=== PATIENT | female | born 1995 | race Caucasian/White ===

== ENCOUNTER → 2017-05-15 | Outpatient (CLI) | payer OTHER ==
[2017-05-15 13:20] LABS: BASOPHIL % 0.5 % (0-2); PLATELET COUNT 212 x10^3mcL (130-400); RED CELL DISTRIBUTION WIDTH 13.8 % (11.5-14.5)
[2017-05-15 13:44] LABS: ALKALINE PHOSPHATASE 47 U/L (46-116); ALT/SGPT 23 U/L (14-59); AMYLASE 78 U/L (25-115); AST/SGOT 15 U/L (15-37); CARBON DIOXIDE 25.2 mmol/L (21-32); CHLORIDE SERUM 105 mmol/L (98-107); CREATININE SERUM 0.7 mg/dL (0.6-1.0); GFR1 > 60 mL/min; GLUCOSE SERUM 95 mg/dL (74-106); LIPASE 134 IU/L (73-393); POTASSIUM SERUM 4.3 mmol/L (3.5-5.1); SODIUM SERUM 139 mmol/L (136-145); TOTAL PROTEIN, SERUM 7.6 g/dL (6.4-8.2)
== END | disposition home or self-care (01) ==
LOC: LB 12:11
PROVIDERS: Family Medicine
PROC: BW40ZZZ Ultrasonography of Abdomen (ICD-10-PCS; principal; 2017-05-15)
DX: R10.9 Unspecified abdominal pain (principal)

== ENCOUNTER 2018-08-04 04:07 | Emergency (ER) | payer OTHER ==
[~2018-08-04] VITALS: Ht 165.1 cm; Wt 78.0 kg
[2018-08-04 04:49] VITALS: BP 137/94
== END 2018-08-04 04:49 | disposition home or self-care (01) ==
LOC: ED 04:07
DX: N39.0 Urinary tract infection, site not specified (principal); F31.9 Bipolar disorder, unspecified